=== PATIENT | male | born 1970 | race Caucasian/White ===

== ENCOUNTER 2020-11-20 07:37 | Emergency (ER) | payer SELFPAY ==
--- NOTE | 2020-11-20 07:50 | EDM.PDOC ---
ED HPI GENERAL MEDICAL PROBLEM - General Chief Complaint: Cardiovascular Problem Stated Complaint: LEFT SIDE NUMBNESS Time Seen by Provider: 11/20/20 07:49 - History of Present Illness INITIAL COMMENTS - FREE TEXT/NARRATIVE: 50-year-old male presents the emergency room with chest discomfort. This chest is comfort is an on-and-off situation has been going on for at least 2 to 3 weeks. This discomfort is usually relieved with activity and does not get worse with activity. Patient states that he is put on some weight since being here since the beginning of the pandemic. He normally lives in [place]. Patient does not smoke and does not have a positive family history of coronary artery disease. Patient has taken a regular aspirin today and usually takes aspirin on a daily basis. He is not taking any routine medications. However, at times he has been seen at the [facility] and recently they have discussed starting him on something for his blood pressure. Patient denies any heartburn or gastrointestinal symptoms. This pain is not associated with any shortness of breath. The pain at this time seems to be electrical lasting several seconds. However, at times he notices a squeezing sensation in his chest that he has a hard time describing. He does have pain into his left shoulder and upper arm. Patient does have a history of neck problems and with changing to sleeping on his back this seems to be much better. The patient does not believe his presenting complaint is related to his neck at this point. Apparently the patient did have an MRI done here which showed 3 bulging disks. - Related Data Allergies Allergy/AdvReac Type Severity Reaction Status Date / Time sodium lauryl sulfate Allergy Rash Verified 11/20/20 07:43 Home Meds: Home Meds . [No Known Home Meds] 11/20/20 [History] ED ROS GENERAL - Review of Systems Review Of Systems: See Below Constitutional: Reports: No Symptoms HEENT: Reports: No Symptoms Respiratory: Reports: No Symptoms Cardiovascular: Reports: Chest Pain. Denies: Dyspnea on Exertion, Palpitations, Syncope Endocrine: Reports: No Symptoms GI/Abdominal: Reports: No Symptoms : Reports: No Symptoms Musculoskeletal: Reports: Arm Pain Skin: Reports: No Symptoms Neurological: Reports: Tingling (This was thought to be secondary to his neck and is doing better at this time) Psychiatric: Reports: No Symptoms Hematologic/Lymphatic: Reports: No Symptoms ED EXAM, GENERAL - Physical Exam Exam: See Below Exam Limited By: No Limitations General Appearance: Alert, No Apparent Distress Head: Atraumatic, Normocephalic Neck: Normal Inspection, Supple, Non-Tender, Full Range of Motion. No: Lymphadenopathy (L), Lymphadenopathy (R) Respiratory/Chest: No Respiratory Distress, Lungs Clear, Normal Breath Sounds Cardiovascular: Regular Rate, Rhythm, No Edema, No Murmur GI/Abdominal: Normal Bowel Sounds, Soft, Non-Tender, Other (Some abdominal obesity, exam otherwise not limited) Back Exam: Normal Inspection. No: CVA Tenderness (L), CVA Tenderness (R) Neurological: Alert, Oriented, Normal Cognition, Other (I did have the patient hold his left arm in the flexed position over his head and this did help with his discomfort to some degree.) #1 Interpretation EKG Date: 11/20/20 Rhythm: NSR [place]: Other (Left axis change) P-Wave: Present QRS: Normal ST-T: Normal QT: Normal Comparison: NA - No Prior EKG EKG Interpretation Comments: Borderline EKG nondiagnostic Course - Vital Signs Last Recorded V/S: Last Vital Signs Temp 36.3 C 11/20/20 07:45 Pulse 74 11/20/20 07:45 Resp 13 11/20/20 07:45 BP 170/118 H 11/20/20 07:45 Pulse Ox 95 11/20/20 07:45 - Orders/Labs/Meds Orders: Active Orders 24 hr Category Date Time Status EKG Documentation Completion [RC] ASDIRECTED Care 11/20/20 07:46 Active Nitroglycerin [Nitrostat] Med 11/20/20 08:16 Active 0.4 mg SL Q5M PRN EKG 12 Lead [EK] Stat Ther 11/20/20 07:46 Ordered Medication Orders Nitroglycerin (Nitrostat) 0.4 mg SL Q5M PRN PRN Reason: Chest Pain Labs: Laboratory Tests 11/20/20 11/20/20 11/20/20 Range/Units 08:10 08:10 08:10 WBC 7.68 (4.23-9.07) K/mm3 RBC 5.10 (4.63-6.08) M/mm3 Hgb 15.0 (13.7-17.5) gm/dl Hct 44.6 (40.1-51.0) % MCV 87.5 (79.0-92.2) fl MCH 29.4 (25.7-32.2) pg MCHC 33.6 (32.2-35.5) g/dl RDW Std Deviation 40.9 (35.1-43.9) fL Plt Count 193 (163-337) K/mm3 MPV 12.1 (9.4-12.3) fl Neut % (Auto) 54.7 (34.0-67.9) % Lymph % (Auto) 33.9 (21.8-53.1) % [place] % (Auto) 8.7 (5.3-12.2) % Eos % (Auto) 2.2 (0.8-7.0) Baso % (Auto) 0.4 (0.1-1.2) % Neut # (Auto) 4.20 (1.78-5.38) K/mm3 Lymph # (Auto) 2.60 (1.32-3.57) K/mm3 [place] # (Auto) 0.67 (0.30-0.82) K/mm3 Eos # (Auto) 0.17 (0.04-0.54) K/mm3 Baso # (Auto) 0.03 (0.01-0.08) K/mm3 D-Dimer, Quantitative < 0.19 L (0.19-0.50) mg/L Sodium 143 (136-145) mEq/L Potassium 3.7 (3.5-5.1) mEq/L Chloride 108 H (98-107) mEq/L Carbon Dioxide 25 (21-32) mEq/L Anion Gap 13.7 (5-15) BUN 14 (7-18) mg/dL Creatinine 1.4 H (0.7-1.3) mg/dL Est Cr Clr Drug Dosing 64.45 mL/min Estimated GFR (MDRD) 53 (>60) mL/min BUN/Creatinine Ratio 10.0 L (14-18) Glucose 105 (74-106) mg/dL Calcium 8.8 (8.5-10.1) mg/dL Magnesium 2.2 (1.8-2.4) mg/dl Total Bilirubin 0.9 (0.2-1.0) mg/dL AST 20 (15-37) U/L ALT 43 (16-63) U/L Alkaline Phosphatase 71 (46-116) U/L Troponin I < 0.017 (0.00-0.056) ng/mL Total Protein 7.2 (6.4-8.2) g/dl Albumin 3.8 (3.4-5.0) g/dl Globulin 3.4 gm/dL Albumin/Globulin Ratio 1.1 (1-2) Meds: Medications Generic Name Dose Route Start Last Admin Trade Name Meri PRN Reason Stop Dose Admin Nitroglycerin 0.4 mg 11/20/20 08:16 Nitrostat SL Q5M PRN Chest Pain - Re-Assessments/Exams Free Text/Narrative Re-Assessment/Exam: 11/20/20 08:29 His blood pressure will tolerate nitro we will give it a try EKG does not show any obvious ischemia labs pending. 11/20/20 08:36 I did review the results of his MRI. He has some mild disc bulging but no central canal stenosis or significant foraminal stenosis. 11/20/20 09:50 Chest x-ray is unremarkable. Troponin is negative D-dimer is negative labs otherwise unrevealing he is got a mild increase in his creatinine. The patient absolutely needs to follow-up in the clinic for his blood pressure and will follow up in the [facility] for this. I did offer to put an order in for stress Cardiolite however the patient would like to discuss this with his clinic provider in [place]. I recommended the patient start baby aspirin 81 mg daily preferably enteric-coated and follow-up in the clinic later this week. Patient's heart score is 2 one point for his age the other point for risk factors family history and his untreated hypertension. I did discuss the implications of this the 1.7% risk of major acute coronary event. And the option for hospital observation versus outpatient treatment and they elect outpatient treatment. I did order nitro for this gentleman however he declined this. Departure - Departure Time of Disposition: 09:55 Disposition: Home, Self-Care 01 Clinical Impression: Chest pain Referrals: Sandy Mckenna GAME AUTHOR [Primary Care Provider] - Forms: ED Department Discharge Additional Instructions: Return to the emergency room with any questions problems or worsening symptoms. It is recommended he start baby aspirin, 81 mg preferably enteric-coated 1 daily. Follow-up in the clinic later this week for recheck your blood pressure and di scuss getting a heart stress test preferably with nuclear medicine or ultrasound images. Sepsis Event Note (ED) - Focused Exam Vital Signs: Vital Signs Temp Pulse Resp BP Pulse Ox 11/20/20 07:45 36.3 C 74 13 170/118 H 95 - My Orders Last 24 Hours: My Active Orders 11/20/20 07:46 EKG Documentation Completion [RC] ASDIRECTED EKG 12 Lead [EK] Stat 11/20/20 08:16 Nitroglycerin [Nitrostat] 0.4 mg SL Q5M PRN - Assessment/Plan Last 24 Hours: My Active Orders 11/20/20 07:46 EKG Documentation Completion [RC] ASDIRECTED EKG 12 Lead [EK] Stat 11/20/20 08:16 Nitroglycerin [Nitrostat] 0.4 mg SL Q5M PRN
[2020-11-20] MEDS ORDERED: Nitroglycerin 0.4 MG Tab.SL SL PRN (08:16)
--- NOTE | 2020-11-20 09:09 | CR ---
Chest: Portable view of the chest was obtained. Comparison: No prior chest imaging is available. Heart size and mediastinum are normal. Lungs are clear with no acute parenchymal change. No discrete bony abnormality is appreciated. Impression: 1. Nothing acute is seen on portable chest x-ray. Diagnostic code #1
== END 2020-11-20 10:10 | disposition home or self-care (01) ==
LOC: JD.ED 07:37
DX: R07.89 Other chest pain (principal); M79.603 Pain in arm, unspecified; Z88.8 Allergy status to other drugs, medicaments and biological substances
CPT/HCPCS: 36415; 71045; 71045-26; 80053; 83735; 84484; 85025; 85379; 93005; 93010; 99284; 99285-25; A9270-GY